=== PATIENT | female | born 1970 | race Caucasian/White ===

== ENCOUNTER 2017-10-07 13:01 | Emergency (ER) | payer MEDICAID ==
--- NOTE | 2017-10-07 13:25 | EDM.PDOC ---
ED HPI GENERAL MEDICAL PROBLEM - General Chief Complaint: Skin Complaint Stated Complaint: RASH ON FOOT Time Seen by Provider: 10/07/17 13:05 Source of Information: Reports: Patient History Limitations: Reports: No Limitations - History of Present Illness INITIAL COMMENTS - FREE TEXT/NARRATIVE: Patient is a 46-year-old female presents ED complaining of a rash to the right great and second toe on the dorsal aspect of the foot. Patient states the rash is very itchy and has noticed some oozing from small blisters noted to the toes. There is minimal pain present. No history of MRSA. No other rash like this to the remaining part of her body. Right Feet Pain Score (Numeric/FACES): 3 - Related Data Allergies Allergy/AdvReac Type Severity Reaction Status Date / Time No Known Allergies Allergy Verified 10/07/17 13:08 Home Meds: Home Meds Mupirocin Oint [Bactroban Oint] 22 gm TOP TID #1 tube 10/07/17 [Rx] Pantoprazole Sodium [Protonix] 40 mg PO DAILY 10/07/17 [History] traMADol [Ultram] 50 mg PO Q8H PRN 10/07/17 [History] ED ROS GENERAL - Review of Systems Review Of Systems: See Below Skin: Reports: Rash (Right foot) Neurological: Denies: Difficulty Walking ED EXAM, SKIN/RASH Exam: See Below Exam Limited By: No Limitations General Appearance: Alert, WD/WN, No Apparent Distress Ears: Hearing Grossly Normal Nose: Normal Inspection Throat/Mouth: Normal Voice, No Airway Compromise Neck: Normal Inspection, Supple Respiratory/Chest: No Respiratory Distress, No Accessory Muscle Use Cardiovascular: Normal Peripheral Pulses, Regular Rate, Rhythm Extremities: Non-Tender, Other (Folliculitis to the right great and 2nd toe. ) Neurological: Alert, Oriented, CN II-XII Intact, Normal Cognition, Normal Gait, No Motor/Sensory Deficits Psychiatric: Normal Affect, Normal Mood Skin: Warm, Dry Location, Skin: Lower Extremity, Right (great toe and 2nd toe) Characteristics: Erythematous, Other (folliculitis) Associated features: Swelling, Inflammation, Crusting. No: Weeping Course - Vital Signs Last Recorded V/S: Last Vital Signs Temp 98.2 F 10/07/17 13:09 Pulse 89 10/07/17 13:09 Resp BP 119/88 10/07/17 13:09 Pulse Ox 100 10/07/17 13:09 - Re-Assessments/Exams Free Text/Narrative Re-Assessment/Exam: Rash consistent with folliculitis to the right great and second toe. Patient does shave her toes and feet. Patient has an ingrown toe hairs causing the erythema and irritation. Minimal swelling present. No redness streaking up her foot or leg. Will have nursing staff place bacitracin and dressing to wound site. Discharge home with instructions as documented. Departure - Departure Time of Disposition: 13:21 Disposition: Home, Self-Care 01 Condition: Good Clinical Impression: Folliculitis - Discharge Information Prescriptions: Mupirocin Oint [Bactroban Oint] 22 gm TOP TID #1 tube Instructions: Pruritus Referrals: Mary Francis MD [Primary Care Provider] - Forms: ED Department Discharge Additional Instructions: Apply the mupirocin sparingly to the affected area 3 times a day. Cleanse site twice daily with soap and water, pat dry, keep covered if draining. Keep area clean and dry. Follow-up with her PCP as needed for reevaluation and further treatment. Return to the ED if you develop any new or worsening symptoms.
== END 2017-10-07 13:30 | disposition home or self-care (01) ==
LOC: MERGE 13:01 → JD.ED 13:01
DX: L73.9 Follicular disorder, unspecified (principal); Z79.899 Other long term (current) drug therapy
CPT/HCPCS: 99283

== ENCOUNTER 2020-03-28 12:54 | Emergency (ER) | payer MEDICAID ==
[2020-03-28] MEDS ORDERED: Aspirin 81 MG Tab.Chew PO ONE (13:15)
[2020-03-28] MEDS ORDERED: Sodium Chloride 0.9% 10 ML Syringe FLUSH PRN ×2 (13:15→13:53)
[2020-03-28] MEDS ORDERED: HYDROmorphone 1 MG/ML Syringe IVPUSH ONE (13:17)
[2020-03-28] MEDS ORDERED: Iopamidol 755 Mg/ML 100 ML Bottle IVPUSH ONE (13:53)
[2020-03-28] MEDS ORDERED: Sodium Chloride 0.9% 45 ML IV SCH (14:00)
--- NOTE | 2020-03-28 14:12 | CR ---
Chest: PA view of the chest was obtained. Comparison: No prior chest x-ray. Heart size and mediastinum are normal. Lungs are clear with no acute parenchymal change. Bony structures are grossly intact. Impression: 1. Nothing acute is seen in PA chest x-ray. Diagnostic code #1 Study was dictated in MDT
--- NOTE | 2020-03-28 14:26 | CT ---
CT chest Technique: Multiple axial sections through the chest were obtained. Intravenous contrast was utilized. Study performed as a pulmonary angiogram protocol. Findings: Pulmonary arteries are well-opacified. No filling defects are seen to indicate pulmonary embolism. Thoracic aorta shows no aneurysm. No mediastinal adenopathy is seen. No hilar abnormalities are noted. No pericardial thickening is seen. Small portion of the visualized upper abdominal structures shows no discrete abnormality. Lungs are clear with no acute parenchymal change. No pleural effusions are seen. Bone window settings were reviewed which shows no acute osseous finding. Impression: 1. No findings of pulmonary embolism. 2. Nothing acute is appreciated on CT study of the chest. Diagnostic code #1 Study was dictated in MDT
--- NOTE | 2020-03-28 15:01 | EDM.PDOC ---
ED HPI GENERAL MEDICAL PROBLEM - General Chief Complaint: Chest Pain Stated Complaint: CHEST PAIN Time Seen by Provider: 03/28/20 13:04 Source of Information: Reports: Patient History Limitations: Reports: No Limitations - History of Present Illness INITIAL COMMENTS - FREE TEXT/NARRATIVE: The patient presents with left sided chest pain. This started about a week ago and it comes and goes but today it is more constant and severe. She does have shortness of breath with it. She has no cough or fever. She says it hurts worse to take a deep breath and with movement. She has no history of heart disease. She does not smoke, she does not have hypertension, hypercholesterolemia and diabetes. She has no swelling or pain in her legs. 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 Onset: Gradual Duration: Week(s): Location: Reports: Chest Quality: Reports: Sharp Severity: Severe Improves with: Reports: Immobilization Worsens with: Reports: Movement Context: Denies: Trauma Associated Symptoms: Reports: Chest Pain, Shortness of Breath. Denies: Cough, Fever/Chills, Headaches, Nausea/Vomiting Left Chest Pain Score (Numeric/FACES): 10 - Related Data Allergies Allergy/AdvReac Type Severity Reaction Status Date / Time No Known Allergies Allergy Verified 03/28/20 13:02 Home Meds: Home Meds traMADol [Ultram] 50 mg PO Q8H PRN 10/07/17 [History] Hydrocodone/Acetaminophen [Hydrocodone-Acetamin 5-325 mg] 1 - 2 each PO Q6HR PRN #15 tablet 03/28/20 [Rx] Past Medical History - Past Health History Medical/Surgical History: Denies Medical/Surgical History - Past Surgical History Female Surgical History: Reports: D&C Social & Family History - Family History Family Medical History: Noncontributory - Tobacco Use Smoking Status *Q: Never Smoker - Caffeine Use Caffeine Use: Reports: None - Recreational Drug Use Recreational Drug Use: No ED ROS GENERAL - Review of Systems Review Of Systems: See Below Constitutional: Reports: No Symptoms HEENT: Reports: No Symptoms Respiratory: Reports: Shortness of Breath Cardiovascular: Reports: Chest Pain Endocrine: Reports: No Symptoms GI/Abdominal: Reports: No Symptoms : Reports: No Symptoms Musculoskeletal: Reports: No Symptoms ED EXAM, GENERAL - Physical Exam Exam: See Below Exam Limited By: No Limitations General Appearance: Alert, No Apparent Distress Ears: Normal External Exam Nose: Normal Inspection Head: Atraumatic, Normocephalic Neck: Normal Inspection Respiratory/Chest: No Respiratory Distress, Lungs Clear, Normal Breath Sounds Cardiovascular: Regular Rate, Rhythm, No Edema, No Murmur GI/Abdominal: Soft, Non-Tender, No Organomegaly, No Mass Back Exam: Normal Inspection Extremities: Normal Inspection EKG INTERPRETATION EKG Date: 03/28/20 Time: 12:59 Rhythm: NSR Rate (Beats/Min): 92 [place]: Normal P-Wave: Present QRS: Normal ST-T: Normal QT: Normal Course - Vital Signs Last Recorded V/S: Last Vital Signs Temp 97.0 F 03/28/20 13:00 Pulse 89 03/28/20 13:00 Resp 20 03/28/20 13:00 BP 153/93 H 03/28/20 13:00 Pulse Ox 100 03/28/20 13:00 - Orders/Labs/Meds Orders: Active Orders 24 hr Category Date Time Status Cardiac Monitoring [RC] . DIRECTED Care 03/28/20 13:15 Active EKG Documentation Completion [RC] STAT Care 03/28/20 13:15 Active Peripheral IV Care [RC] . DIRECTED Care 03/28/20 13:16 Active Sodium Chloride 0.9% [Normal Saline] 45 ml Med 03/28/20 14:00 Active IV ASDIRECTED Sodium Chloride 0.9% [Saline Flush] Med 03/28/20 13:15 Active 10 ml FLUSH ASDIRECTED PRN Sodium Chloride 0.9% [Saline Flush] Med 03/28/20 13:53 Active 10 ml FLUSH ONETIME PRN Peripheral IV Insertion Adult [OM.PC] Stat Oth 03/28/20 13:15 Ordered Medication Orders Sodium Chloride (Normal Saline) 45 mls @ 40 mls/hr IV ASDIRECTED NOMAN Last Admin: 03/28/20 14:02 Dose: 40 mls/hr Sodium Chloride (Saline Flush) 10 ml FLUSH ASDIRECTED PRN PRN Reason: Keep Vein Open Last Admin: 03/28/20 13:23 Dose: 10 ml Sodium Chloride (Saline Flush) 10 ml FLUSH ONETIME PRN PRN Reason: Keep Vein Open Last Admin: 03/28/20 14:02 Dose: 10 ml Labs: Laboratory Tests 03/28/20 03/28/20 03/28/20 Range/Units 13:05 13:05 13:05 WBC 5.64 (3.98-10.04) K/mm3 RBC 4.59 (3.98-5.22) M/mm3 Hgb 10.0 L D (11.2-15.7) gm/dl Hct 33.9 L (34.1-44.9) % MCV 73.9 L D (79.4-94.8) fl MCH 21.8 L (25.6-32.2) pg MCHC 29.5 L (32.2-35.5) g/dl RDW Std Deviation 42.8 (36.4-46.3) fL Plt Count 383 H D (182-369) K/mm3 MPV 9.0 L (9.4-12.3) fl Neut % (Auto) 53.7 (34.0-71.1) % Lymph % (Auto) 34.6 (19.3-51.7) % [place] % (Auto) 8.7 (4.7-12.5) % Eos % (Auto) 2.5 (0.7-5.8) Baso % (Auto) 0.5 (0.1-1.2) % Neut # (Auto) 3.03 (1.56-6.13) K/mm3 Lymph # (Auto) 1.95 (1.18-3.74) K/mm3 [place] # (Auto) 0.49 H (0.24-0.36) K/mm3 Eos # (Auto) 0.14 (0.04-0.36) K/mm3 Baso # (Auto) 0.03 (0.01-0.08) K/mm3 Manual Slide Review Abnormal smear D-Dimer, Quantitative 2.06 H (0.19-0.50) mg/L Sodium 142 (136-145) mEq/L Potassium 3.8 (3.5-5.1) mEq/L Chloride 105 (98-107) mEq/L Carbon Dioxide 26 (21-32) mEq/L Anion Gap 14.8 (5-15) BUN 8 (7-18) mg/dL Creatinine 0.8 (0.55-1.02) mg/dL Est Cr Clr Drug Dosing 77.88 mL/min Estimated GFR (MDRD) > 60 (>60) mL/min BUN/Creatinine Ratio 10.0 L (14-18) Glucose 95 (74-106) mg/dL Calcium 8.8 (8.5-10.1) mg/dL Total Bilirubin 0.3 (0.2-1.0) mg/dL AST 17 (15-37) U/L ALT 28 (14-59) U/L Alkaline Phosphatase 77 (46-116) U/L Troponin I < 0.017 (0.00-0.056) ng/mL Total Protein 7.2 (6.4-8.2) g/dl Albumin 3.6 (3.4-5.0) g/dl Globulin 3.6 gm/dL Albumin/Globulin Ratio 1.0 (1-2) Meds: Medications Generic Name Dose Route Start Last Admin Trade Name Freq PRN Reason Stop Dose Admin Sodium Chloride 45 mls @ 40 mls/hr 03/28/20 14:00 03/28/20 14:02 Normal Saline IV 40 mls/hr ASDIRECTED NOMAN Administration Sodium Chloride 10 ml 03/28/20 13:15 03/28/20 13:23 Saline Flush FLUSH 10 ml ASDIRECTED PRN Administration Keep Vein Open Sodium Chloride 10 ml 03/28/20 13:53 03/28/20 14:02 Saline Flush FLUSH 10 ml ONETIME PRN Administration Keep Vein Open Discontinued Medications Generic Name Dose Route Start Last Admin Trade Name Freq PRN Reason Stop Dose Admin Aspirin 324 mg 03/28/20 13:15 03/28/20 13:23 Aspirin PO 03/28/20 13:16 324 mg ONETIME ONE Administration Hydromorphone HCl 1 mg 03/28/20 13:17 03/28/20 13:23 Dilaudid IVPUSH 03/28/20 13:18 1 mg ONETIME ONE Administration Iopamidol 100 ml 03/28/20 13:53 03/28/20 14:02 Isovue-370 (76%) IVPUSH 03/28/20 13:54 100 ml ONETIME ONE Administration - Re-Assessments/Exams Free Text/Narrative Re-Assessment/Exam: 03/28/20 15:02 I ordered an IV saline lock, aspirin 324mg PO, dilaudid 1mg IV, EKG, CXR and labs. Her EKG shows a NSR with o acute changes. Her CXR looks good. Her CBC and CMP look good. Her D-dimer is elevated at 2.06. I have ordered a CT angio of her chest. The CT shows no findings of pulmonary embolism. Nothing acute is appreciated on CT study of the chest. She feels much better. It appears to be pleurisy. Departure - Departure Time of Disposition: 15:10 Disposition: Home, Self-Care 01 Condition: Good Clinical Impression: Atypical chest pain, Pleurisy Prescriptions: Hydrocodone/Acetaminophen [Hydrocodone-Acetamin 5-325 mg] 1 - 2 each PO Q6HR PRN #15 tablet PRN Reason: Pain Referrals: Mary Francis MD [Primary Care Provider] - 1 Week Additional Instructions: Take motrin or aleve for pain. If that does not help, try the hydrocodone. Follow up with Dr Francis within a week. Please return if you are worse. Sepsis Event Note (ED) - Evaluation Sepsis Screening Result: No Definite Risk - Focused Exam Vital Signs: Vital Signs Temp Pulse Resp BP Pulse Ox 03/28/20 13:00 97.0 F 89 20 153/93 H 100 - My Orders Last 24 Hours: My Active Orders 03/28/20 13:15 Cardiac Monitoring [RC] . DIRECTED EKG Documentation Completion [RC] STAT Sodium Chloride 0.9% [Saline Flush] 10 ml FLUSH ASDIRECTED PRN Peripheral IV Insertion Adult [OM.PC] Stat 03/28/20 13:16 Peripheral IV Care [RC] . DIRECTED 03/28/20 13:53 Sodium Chloride 0.9% [Saline Flush] 10 ml FLUSH ONETIME PRN 03/28/20 14:00 Sodium Chloride 0.9% [Normal Saline] 45 ml IV ASDIRECTED - Assessment/Plan Last 24 Hours: My Active Orders 03/28/20 13:15 Cardiac Monitoring [RC] . DIRECTED EKG Documentation Completion [RC] STAT Sodium Chloride 0.9% [Saline Flush] 10 ml FLUSH ASDIRECTED PRN Peripheral IV Insertion Adult [OM.PC] Stat 03/28/20 13:16 Peripheral IV Care [RC] . DIRECTED 03/28/20 13:53 Sodium Chloride 0.9% [Saline Flush] 10 ml FLUSH ONETIME PRN 06/15/20 14:00 Sodium Chloride 0.9% [Normal Saline] 45 ml IV ASDIRECTED
== END 2020-03-28 15:20 | disposition home or self-care (01) ==
LOC: JD.ED 12:54
DX: R09.1 Pleurisy (principal)
CPT/HCPCS: 36415; 71045; 71275; 80053; 84484; 85025; 85379; 93005; 96374; 99285; A9270; J1170; J7050; Q9967; 93010; 99284

== ENCOUNTER 2020-04-28 07:07 | Day surgery (SDC) | payer MEDICAID ==
[~2020-04-28 07:07] MED LIST: Lactated Ringers 1,000 ML IV SCH; Lidocaine 1% 4 ML ONE; Lidocaine 1%/Sod Bicarbonate in NS 8.4% 1 ML Syringe IDERM PRN; Midazolam 1 MG/ML 2 ML SDV ONE; Propofol 200 MG/20 ML SDV ONE; Sodium Chloride 0.9% 10 ML Syringe FLUSH PRN; fentaNYL 100 MCG/2 ML SDV ONE
--- NOTE | 2020-04-28 07:25 | PCM.PREANE ---
Preanesthetic Assessment - Procedure Proposed Procedure: screening egd and colonoscopy - Anesthesia/Transfusion/Family Hx Anesthesia History: Prior Anesthesia Without Reaction Family History of Anesthesia Reaction: No Transfusion History: No Prior Transfusion(s) - Review of Systems General: No Symptoms Pulmonary: No Symptoms Cardiovascular: Chest Pain (pleurisy left lung- 1 month ago-has celiac) Gastrointestinal: No Symptoms Neurological: No Symptoms Other: Reports: None - Physical Assessment NPO Status Date: 04/27/20 NPO Status Time: 23:55 Vital Signs: 130/69 66 98% 16 97.0 Height: 5 ft 6 in Weight: 89.7 kg ASA Class: 2 Mental Status: Alert & Oriented x3 Airway Class: Mallampati = 1 Dentition: Reports: Normal Dentition Thyro-Mental Finger Breadths: 3 Mouth Opening Finger Breadths: 3 ROM/Head Extension: Full Lungs: Clear to Auscultation Cardiovascular: Regular Rate, Regular Rhythm, No Murmurs - Allergies Allergies/Adverse Reactions: Allergies Allergy/AdvReac Type Severity Reaction Status Date / Time No Known Allergies Allergy Verified 04/27/20 14:03 - Blood Blood Available: No - Acknowledgements Anesthesia Type Planned: MAC Pt an Appropriate Candidate for the Planned Anesthesia: Yes Alternatives and Risks of Anesthesia Discussed w Pt/Guardian: Yes Pt/Guardian Understands and Agrees with Anesthesia Plan: Yes PreAnesthesia Questionnaire - Past Health History Medical/Surgical History: Denies Medical/Surgical History HEENT History: Reports: Impaired Vision Cardiovascular History: Reports: None Respiratory History: Reports: Other (See Below) Other Respiratory History: pleurisy Gastrointestinal History: Reports: Celiac Disease, Colon Polyp, GERD, Other (See Below) Other Gastrointestinal History: epigastric pain Genitourinary History: Reports: None DENTAL CERAMIST ASSISTANT History: Reports: None Musculoskeletal History: Reports: Other (See Below) Other Musculoskeletal History: arthralgia, knee pain, right hip pain Neurological History: Reports: None Psychiatric History: Reports: Other (See Below) Other Psychiatric History: fatigue Endocrine/Metabolic History: Reports: Obesity/BMI 30+, Vitamin D Deficiency Hematologic History: Reports: Anemia, Iron Deficiency Immunologic History: Reports: None Oncologic (Cancer) History: Reports: None Dermatologic History: Reports: Other (See Below) Other Dermatologic History: folliculitis - Past Surgical History Head Surgeries/Procedures: Reports: None Cardiovascular Surgical History: Reports: None Respiratory Surgical History: Reports: None GI Surgical History: Reports: Colonoscopy, EGD Female Surgical History: Reports: D&C Male Surgical History: Reports: None Endocrine Surgical History: Reports: None Neurological Surgical History: Reports: None Musculoskeletal Surgical History: Reports: None Oncologic Surgical History: Reports: None Dermatological Surgical History: Reports: None - SUBSTANCE USE Smoking Status *Q: Never Smoker Tobacco Use Within Last Twelve Months: No Second Hand Smoke Exposure: No Days Per Week of Alcohol Use: 0 Recreational Drug Use History: No - HOME MEDS Home Medications: Home Meds traMADol [Ultram] 25 - 50 mg PO BEDTIME PRN 10/07/17 [History] ALPRAZolam [Alprazolam] 0.5 mg PO BEDTIME PRN 04/27/20 [History] Calcium Carbonate [Tums X-Str] 900 mg PO DAILY 04/27/20 [History] Esomeprazole [NexIUM] 20 mg PO DAILY 04/27/20 [History] Ibuprofen 800 mg PO Q4H PRN 04/27/20 [History] Iron,Carbonyl/Ascorbic Acid [Iron 100-Vitamin C Tablet] 1 tab PO DAILY 04/27/20 [History] - CURRENT (IN HOUSE) MEDS Current Meds: Current Medications Lactated Ringer's (Ringers, Lactated) 1,000 mls @ 125 mls/hr IV ASDIRECTED NOMAN Lidocaine/Sodium Bicarbonate (Buffered Lidocaine 1% In Ns 8.4%) 0.25 ml IDERM ONETIME PRN PRN Reason: Prior to IV Start Sodium Chloride (Saline Flush) 10 ml FLUSH ASDIRECTED PRN PRN Reason: Keep Vein Open Discontinued Medications Fentanyl (Sublimaze) Confirm Administered Dose 100 mcg .ROUTE .STK-MED ONE Stop: 04/28/20 07:08 Lidocaine HCl (Xylocaine-Mpf 1%) Confirm Administered Dose 4 mls @ as directed .ROUTE .STK-MED ONE Stop: 04/28/20 07:07 Midazolam HCl (Versed 1 Mg/Ml) Confirm Administered Dose 2 mg .ROUTE .STK-MED ONE Stop: 04/28/20 07:08 Propofol (Diprivan 20 Ml) Confirm Administered Dose 400 mg .ROUTE .STK-MED ONE Stop: 04/28/20 07:08
[2020-04-28] MEDS ORDERED: Propofol 200 MG/20 ML SDV ONE (08:46)
--- NOTE | 2020-04-28 09:14 | PCM48HPAN ---
Post Anesthesia Note - EVALUATION WITHIN 48HRS OF ANESTHETIC Vital Signs in Normal Range: Yes Patient Participated in Evaluation: Yes Respiratory Function Stable: Yes Airway Patent: Yes Cardiovascular Function Stable: Yes Hydration Status Stable: Yes Pain Control Satisfactory: Yes Nausea and Vomiting Control Satisfactory: Yes Mental Status Recovered: Yes Vital Signs: Last Vital Signs Temp 97.0 F 04/28/20 07:10 Pulse 66 04/28/20 07:10 Resp 16 04/28/20 07:10 BP 130/69 04/28/20 07:10 Pulse Ox 98 04/28/20 07:10 0909 106/67 68 16 97.8 95%
--- NOTE | 2020-04-28 09:22 | PCM.PRNOTE ---
- Free Text/Narrative Note: Date: 04/28/2020 Procedure: diagnostic upper and lower endoscopy Indication: iron deficiency anemia Endoscopist: Power Martinez MD Findings: some cobblestoning of the duodenal mucosa. Patient has a diagnosis of celiac disease. Single polyp in ascending colon identified. Prep was good. Scope was challenging due to tortuous colon with redundancy. Detailed Report: The patient was taken to the endoscopy suite and placed in left lateral decubitus position. Time out was performed and monitored anesthesia care init iated. A bite block was placed and the endoscope was inserted into the mouth. The scope was advanced to the second portion of the duodenum with ease. The mucosa appeared to have a cobblestone appearance with mild erythematous change in the bulb. A sample biopsy was obtained here, and at the antrum and distal esophagus. The stomach appeared normal. There was no hiatal hernia and no gross evidence of esophageal pathology. Air was suctioned and the scope withdrawn. Next, colonoscopy was performed. There were external hemorrhoidal skin tags and a small palpable indurated mass at the 6:00 position when looking at the anal verge. Digital rectal exam was unremarkable. The colonoscope was lubricated and inserted in the anus. The scope was advanced to the cecum, which was challenging due to redundancy. The appendiceal orifice was visualized. The prep was very good. A 1 cm polyp was identified in the ascending colon. Snare polypectomy was performed and remaining tissue was fulgurated. The specimen was successfully retrieved. No other lesions were noted on slow withdrawal of the scope. On retroflexion within the rectum, mild internal hemorrhoids were noted. Air was evacuated and the scope withdrawn. The patient tolerated the procedure well.
== END 2020-04-28 10:00 | disposition home or self-care (01) ==
LOC: JD.SDS 07:07
PROVIDERS: ATTEND Surgery
DX: D12.2 Benign neoplasm of ascending colon (principal); K64.4 Residual hemorrhoidal skin tags; K64.8 Other hemorrhoids; K90.0 Celiac disease; D50.9 Iron deficiency anemia, unspecified; E66.9 Obesity, unspecified; K21.9 Gastro-esophageal reflux disease without esophagitis; Z86.010 Personal history of colon polyps; Z79.899 Other long term (current) drug therapy; Z79.891 Long term (current) use of opiate analgesic; Z68.31 Body mass index [BMI] 31.0-31.9, adult
CPT/HCPCS: 43239; 45385; J2001; J2250; J2704; J3010; J7120; 00813